=== PATIENT | male | born 1970 | race Caucasian/White ===

== ENCOUNTER → 2025-04-02 16:56 | Outpatient (REF) | payer OTHER, SELFPAY | LOC: RAD 16:56 | PROVIDERS: ATTENDING PHYSICIAN Physical Medicine & Rehabilitation | DX: M54.6 Pain in thoracic spine (principal); M47.816 Spondylosis without myelopathy or radiculopathy, lumbar region; M54.2 Cervicalgia | CPT/HCPCS: 72040; 72070; 72100 ==